=== PATIENT | female | born 1950 | race Caucasian/White ===

== ENCOUNTER 2023-06-02 16:26 | Inpatient (IN) | payer MEDICARE ==
[2023-06-02 17:08] VITALS: BMI 34.4
[2023-06-02] MEDS ORDERED: HYDROcodone/Acetaminophen 5/325 mg Tablet PO PRN (17:30)
[2023-06-02] MEDS ORDERED: Calcium Carbonate 500 MG ChewTAB PO PRN (17:30)
[2023-06-02] MEDS ORDERED: Dextrose 50% Abboject 50 ML SYRINGE SLOW IVP PRN (17:38)
[2023-06-02] MEDS ORDERED: Dextrose 5% in Water 1,000 ML IV PRN (17:38)
[2023-06-02] MEDS ORDERED: Glucagon 1 MG/ML KIT IM PRN (17:38)
[2023-06-02] MEDS: Furosemide 40 MG (4 mL) VIAL SLOW IVP SCH (17:46)
[2023-06-02] MEDS: Pantoprazole 40 MG VIAL IVP SCH (20:14)
[2023-06-02 20:25] LABS: Troponin I 0.022 ng/mL (< 0.028)
[2023-06-02 22:36] LABS: Iron Binding Capacity, Total 393 mcg/dL (265-497)
[2023-06-02 23:22] LABS: Iron 116 ug/dL (50-170)
[2023-06-02 23:34] LABS: Troponin I 0.033 ng/mL (< 0.028)
[2023-06-03 04:33] LABS: #Basophils 0.09 10x3/uL (0.0-0.2); %Basophils 0.7 % (0.0-1.0); %Eosinophils 4.4 % (0.0-10.0); %Lymphocytes 10.9 % (21.0-51.0); %Monocytes 8.1 % (0.0-10.0); %Neutrophils 75.5 % (42.0-75.0); Hematocrit 28.2 % (36.0-47.0); Mean Corpuscular HGB CONC 28.4 g/dL (32.0-36.0); Mean Corpuscular Hemoglobin 19.8 pg (27.0-31.0); Mean Corpuscular Volume 69.8 fL (78.0-98.0); Mean Platelet Volume 10.2 fL (7.4-10.4); Platelet Count 452 10x3/uL (130-400); RBC Distribution Width 21.3 % (11.5-14.5); Red Blood Cell (RBC) Count 4.04 mill/uL (4.20-5.40)
[2023-06-03 04:34] LABS: Anion Gap 16 mmol/L (10-20); BUN (Urea Nitrogen) 18 mg/dL (9.8-20.1); Calc. Creatinine Clearance 68 mL/min (70-130); Carbon Dioxide 25 mmol/L (23-31); Chloride 101 mmol/L (98-107); Estimated GFR 54; Glucose 207 mg/dL (83-110); Potassium 3.6 mmol/L (3.5-5.1); Sodium 138 mmol/L (136-145)
[2023-06-03 05:49] LABS: Anisocytosis MODERATE=16-30 cells HPF (0-5); Hypochromia MODERATE=16-30 cells HPF (0-5); Microcytosis SLIGHT = 6-15 cells HPF (0-5); Ovalocytes MODERATE= 6-15 cells HPF (0-1); Platelet Adequacy Comment Platelets Increased; Polychromasia SLIGHT = 2-3 cells HPF (0-2)
[2023-06-03] MEDS: HumaLOG 300 UNITS/3 ML VIAL SC PRN (06:10)
[2023-06-03] MEDS: Furosemide 20 MG TAB PO SCH (07:49)
[2023-06-03] MEDS: Allopurinol 100 MG TAB PO SCH (15:29)
[2023-06-03] MEDS: Amlodipine 10 MG TAB PO SCH (15:29)
[2023-06-03] MEDS: Empagliflozin 25 MG TAB PO SCH (15:29)
[2023-06-03] MEDS: Carvedilol 6.25 MG TAB PO SCH (15:29)
[2023-06-03 17:38] LABS: Ferritin 5.18 ng/mL (10-291)
[2023-06-03] MEDS: Ondansetron ODT 4 MG TAB PO PRN (17:38)
[2023-06-03] MEDS: Simvastatin 10 MG TAB PO SCH (22:14)
[2023-06-03] MEDS: Insulin Glargine 30 UNITS/0.3 ML VIAL SC SCH (22:15)
[2023-06-03] MEDS: GoLYTELY 4,000 ml Bottle PO SCH (22:30)
[2023-06-04 05:48] LABS: #Basophils 0.07 10x3/uL (0.0-0.2); %Basophils 0.6 % (0.0-1.0); %Eosinophils 5.3 % (0.0-10.0); %Lymphocytes 10.2 % (21.0-51.0); %Monocytes 7.3 % (0.0-10.0); %Neutrophils 76.3 % (42.0-75.0); Hematocrit 28.1 % (36.0-47.0); Hemoglobin 7.6 g/dL (12.0-16.0); Mean Corpuscular Hemoglobin 19.6 pg (27.0-31.0); Mean Corpuscular Volume 72.4 fL (78.0-98.0); Mean Platelet Volume 10.4 fL (7.4-10.4); Platelet Count 438 10x3/uL (130-400); RBC Distribution Width 21.7 % (11.5-14.5); Red Blood Cell (RBC) Count 3.88 mill/uL (4.20-5.40)
[2023-06-04 06:55] LABS: Elliptocytes SLIGHT = 2-5 cells HPF (0-1); Hypochromia SLIGHT = 6-15 cells HPF (0-5); Macrocytosis SLIGHT = 6-15 cells HPF (0-5); Platelet Adequacy Comment Platelets Increased; Polychromasia SLIGHT = 2-3 cells HPF (0-2); Schistocytes SLIGHT = 2-5 cells HPF (0-1); Spherocytes SLIGHT = 1-5 cells HPF (None Seen)
[2023-06-04] MEDS: GoLYTELY 4,000 ml Bottle PO SCH (21:13)
[2023-06-05 05:39] LABS: Mean Corpuscular Hemoglobin 20.1 pg (27.0-31.0); Mean Corpuscular Volume 71.6 fL (78.0-98.0); Mean Platelet Volume 10.7 fL (7.4-10.4); Platelet Count 391 10x3/uL (130-400); RBC Distribution Width 22.4 % (11.5-14.5); Red Blood Cell (RBC) Count 3.49 mill/uL (4.20-5.40)
[2023-06-05 06:11] LABS: Anisocytosis MODERATE=16-30 cells HPF (0-5); Hypochromia SLIGHT = 6-15 cells HPF (0-5); Microcytosis SLIGHT = 6-15 cells HPF (0-5); Ovalocytes SLIGHT = 2-5 cells HPF (0-1); Platelet Adequacy Comment Platelets Normal; Poikilocytosis SLIGHT = 6-15 cells HPF (0-5); Polychromasia SLIGHT = 2-3 cells HPF (0-2)
[2023-06-05 06:25] LABS: #Basophils 0.07 10x3/uL (0.0-0.2); %Basophils 0.6 % (0.0-1.0); %Eosinophils 4.4 % (0.0-10.0); %Lymphocytes 14.9 % (21.0-51.0); %Monocytes 11.5 % (0.0-10.0); %Neutrophils 68.3 % (42.0-75.0)
[2023-06-05 07:19] LABS: Anion Gap 16 mmol/L (10-20); BUN (Urea Nitrogen) 15 mg/dL (9.8-20.1); Calc. Creatinine Clearance 77 mL/min (70-130); Calcium 9.4 mg/dL (7.8-10.44); Carbon Dioxide 27 mmol/L (23-31); Chloride 100 mmol/L (98-107); Estimated GFR 63; Glucose 69 mg/dL (83-110); Potassium 3.5 mmol/L (3.5-5.1); Sodium 139 mmol/L (136-145)
[2023-06-05] MEDS ORDERED: Lidocaine 1% PF 5 ML VIAL ONE (08:04)
[2023-06-05] MEDS ORDERED: PROPOFOL 60 ML ONE (08:04)
[2023-06-05] MEDS: FLU VACC QS2023(65UP)/MF59C/PF 60 MCG/0.5 ML SYRINGE IM ONE (09:56)
[2023-06-05] MEDS: Acetaminophen 325 MG TAB PO PRN (16:09)
[2023-06-05] MEDS: cefTRIAXone\\ROCEPHIN 1 GM in Sodium Chloride 0.9% 100 ML IVPB SCH (16:09)
[2023-06-05] MEDS: Azithromycin 250 MG TAB PO SCH (16:09)
[2023-06-05] MEDS: predniSONE 20 MG TAB PO SCH (16:10)
[2023-06-05] MEDS: Melatonin 3 MG TAB PO PRN (23:16)
[2023-06-06 04:38] LABS: #Basophils Less than 0.03 10x3/uL (0.0-0.2); #Eosinphils Less than 0.03 10x3/uL (0.0-0.7); %Basophils 0.1 % (0.0-1.0); %Monocytes 3.9 % (0.0-10.0); %Neutrophils 90.6 % (42.0-75.0); Hematocrit 31.7 % (36.0-47.0); Hemoglobin 9.1 g/dL (12.0-16.0); Mean Corpuscular HGB CONC 28.7 g/dL (32.0-36.0); Mean Corpuscular Hemoglobin 20.8 pg (27.0-31.0); Mean Corpuscular Volume 72.4 fL (78.0-98.0); Mean Platelet Volume 9.9 fL (7.4-10.4); Platelet Count 411 10x3/uL (130-400); RBC Distribution Width 23.2 % (11.5-14.5); Red Blood Cell (RBC) Count 4.38 mill/uL (4.20-5.40)
[2023-06-06 04:52] LABS: Anion Gap 14 mmol/L (10-20); BUN (Urea Nitrogen) 21 mg/dL (9.8-20.1); Calc. Creatinine Clearance 65 mL/min (70-130); Calcium 10.5 mg/dL (7.8-10.44); Carbon Dioxide 27 mmol/L (23-31); Chloride 100 mmol/L (98-107); Estimated GFR 51; Glucose 219 mg/dL (83-110); Potassium 4.1 mmol/L (3.5-5.1); Sodium 137 mmol/L (136-145)
[2023-06-06] MEDS ORDERED: Insulin Glargine 30 UNITS/0.3 ML VIAL SC SCH ×2 (09:22→21:00)
[2023-06-06] MEDS: predniSONE 20 MG TAB PO SCH (09:31)
[2023-06-06] MEDS: Insulin Glargine 30 UNITS/0.3 ML VIAL SC SCH (09:34)
[2023-06-06 11:50] VITALS: BP 170/68; TEMP 97.5
[2023-06-08] MEDS ORDERED: Ergocalciferol 1.25 MG(50,000 UNITS) CAP PO SCH (09:00)
== END 2023-06-06 14:43 | disposition home or self-care (01) | DRG 811 ==
LOC: 2NO 16:26 → OBSVTOIN 06-03 12:45
PROVIDERS: ADMIT Family Medicine; ATTEND Hospitalist
PROC: 0DB98ZX Excision of Duodenum, Via Natural or Artificial Opening Endoscopic, Diagnostic (ICD-10-PCS; principal; 2023-06-05)
PROC: 0DJD8ZZ Inspection of Lower Intestinal Tract, Via Natural or Artificial Opening Endoscopic (ICD-10-PCS; 2023-06-05)
PROC: 30233N1 Transfusion of Nonautologous Red Blood Cells into Peripheral Vein, Percutaneous Approach (ICD-10-PCS; 2023-06-05)
DX: D50.9 Iron deficiency anemia, unspecified (principal); J96.01 Acute respiratory failure with hypoxia; J44.1 Chronic obstructive pulmonary disease with (acute) exacerbation; I5A Non-ischemic myocardial injury (non-traumatic); K44.9 Diaphragmatic hernia without obstruction or gangrene; E11.9 Type 2 diabetes mellitus without complications; E78.2 Mixed hyperlipidemia; E66.9 Obesity, unspecified; Z68.34 Body mass index [BMI] 34.0-34.9, adult; I10 Essential (primary) hypertension; Z98.891 History of uterine scar from previous surgery; Z90.49 Acquired absence of other specified parts of digestive tract; Z90.89 Acquired absence of other organs; Z88.2 Allergy status to sulfonamides
CPT/HCPCS: 36415; 36416; 36430; 80048; 82274; 82607; 82728; 83540; 83550; 85025; 85046; 86850; 86900; 86901; 88305; 90471; 90694; 93306; 96374; 96375; 96376; C9113; G0008; G0378; J0696; J1815; J1940; J2704; J3490; J7512; P9016; Q0162